=== PATIENT | female | born 1995 | race Caucasian/White ===

== ENCOUNTER 2017-10-13 14:25 | Emergency (ER) | payer SELFPAY ==
--- NOTE | 2017-10-13 15:23 | Emergency Department Record ---
History of Present Illness - General Chief complaint: Rectal bleeding Stated complaint: BLEEDING FROM RECTUM Time Seen by Provider: 10/13/17 15:03 Source: Patient Mode of Arrival: Ambulatory Limitations: No limitations - History of Present Illness Initial comments: The patient has had some bleeding from her rectum last night and today. The blood was bright red last night and minimally in the bowl. Also today she did have a small blood clot on the TP when wiping but is having no pain with BM's. She denies any AP, nausea, vomiting, or diarrhea. The patient has an issue with chronic constipation but that is not new. MD complaint: Blood on toilet paper Onset/Timin -: Days(s) Radiation: None Consistency: Constant Improves with: None Worsens with: None Context: Hemorrhoids, Other Associated Symptoms: Denies other symptoms Treatments Prior to Arrival: None - Related Data Home Medications Medication Instructions Recorded Confirmed Last Taken No Home Med [NO HOME MEDS] 10/13/17 10/13/17 Unknown Allergies Allergy/AdvReac Type Severity Reaction Status Date / Time No Known Drug Allergies Allergy Verified 07/31/14 18:39 Travel Screening - Travel/Exposure Within Last 30 Days Have you traveled within the last 30 days?: No Review of Systems Constitutional: Denies: Chills, Fever Past Medical History - SOCIAL HISTORY Smoking Status: Current every day smoker Alcohol Use: None Drug Use: None - RESPIRATORY Hx Respiratory Disorders: No - CARDIOVASCULAR Hx Cardio Disorders: No - NEURO Hx Neuro Disorders: No - GI Hx GI Disorders: No - Hx Genitourinary Disorders: No - ENDOCRINE Hx Endocrine Disorders: No - MUSCULOSKELETAL Hx Musculoskeletal Disorders: No - PSYCH Hx Psych Problems: No - HEMATOLOGY/ONCOLOGY Hx Hematology/Oncology Disorders: No Family Medical History Any Significant Family History?: No Physical Exam - General General Appearance: Alert, Oriented x3, Cooperative, No acute distress - Head Head exam: Atraumatic, Normocephalic, Normal inspection - Eye Eye exam: Normal appearance, PERRL - Neck Neck exam: Normal inspection, Full ROM. negative: Tenderness - Respiratory Respiratory exam: Normal lung sounds bilaterally. negative: Respiratory distress - Cardiovascular Cardiovascular Exam: Regular rate, Normal rhythm, Normal heart sounds - GI/Abdominal GI/Abdominal exam: Soft, Normal bowel sounds. negative: Rebound, Rigid, Tenderness - Rectal Rectal exam: Hemorrhoids (There is a bleeding rectal fissure in the middle of the chronic hemorrhoid.) - Extremities Extremities exam: Normal inspection, Full ROM, Normal capillary refill. negative: Tenderness Course Vital Signs 10/13/17 14:44 Temperature 98.1 F Pulse Rate 93 H Respiratory 18 Rate Blood Pressure 129/87 Pulse Ox 97 Medical Decision Making - Lab Data Result diagrams: 10/13/17 15:25 10/13/17 15:25 Disposition Disposition: Discharge Clinical Impression: Hemorrhoid Qualifiers: Hemorrhoid type: unspecified Qualified Code(s): K64.9 - Unspecified hemorrhoids Disposition: Home, Self-Care Condition: (2) Stable Instructions: Rectal Bleeding (ED) Additional Instructions: Please use an OTC hemorrhoid cream daily for 1 week. Please see your family doctor for further evaluation. Return to the ER for any worsening symptoms. Forms: Patient Portal Access Time of Disposition: 15:51 Quality - Quality Measures Quality Measures: N/A - Blood Pressure Screening View Details: Yes Does Patient Have Any of the Following: No Blood Pressure Classification: Pre-Hypertensive BP Reading Systolic Measurement: 129 Diastolic Measurement: 87 Screening for High Blood Pressure: < Pre-Hypertensive BP, F/U Documented > [ [id number]] Pre-Hypertensive Follow-up Interventions: Referral to alternative/primary care provider.
[2017-10-13 15:29] LABS: BASO % 0.3 % (0-6); EOS % 3.1 % (0-6); GRAN % 58.8 % (47-80); HEMATOCRIT 43.1 % (35.0-47.0); HEMOGLOBIN 14.2 gm/dl (11.6-16.0); LYMPH % 30.1 % (16-45); MEAN CELL VOLUME 90.9 fl (81-97); MEAN CORPUSCULAR HGB CONC 32.9 g/dl (32-36); MEAN PLATELET VOLUME 10.1 fl (7.4-10.4); MONO % 7.7 % (0-9); PLATELET COUNT 275 K/uL (130-400); RED BLOOD COUNT 4.74 M/uL (3.80-5.40); WHITE BLOOD COUNT W/O DIFF 5.8 K/uL (4.2-12.2)
[2017-10-13 15:41] LABS: BLOOD UREA NITROGEN 9 mg/dL (6-20); CREATININE 0.6 mg/dL (0.5-0.9); EST GLOMERULAR FILTRATION RATE > 60 mL/min
[2017-10-13 15:42] LABS: TOTAL PROTEIN 7.4 g/dL (6.6-8.7)
[2017-10-13 15:44] LABS: GLUCOSE,RANDOM 86 mg/dL (74-109)
[2017-10-13 15:46] LABS: ALB/GLOB RATIO 1.8 (1.1-1.8); ALBUMIN 4.8 g/dL (4.0-5.0); ALT/SGPT 16 U/L (<33); AST/SGOT 16 U/L (10.0-35.0)
[2017-10-13 15:47] LABS: ALKALINE PHOSPHATASE 78 U/L (35-104)
== END 2017-10-13 15:55 | disposition home or self-care (01) ==
LOC: ER 14:25
DX: K60.4 Rectal fistula (principal); K64.8 Other hemorrhoids; F17.210 Nicotine dependence, cigarettes, uncomplicated
CPT/HCPCS: 80053; 85025; 99283